=== PATIENT | female | born 1965 | race American Indian/Alaskan Native ===

== ENCOUNTER 2021-03-01 08:00 | Outpatient (CLI) | payer OTHER | END 2021-03-01 08:30 | disposition home or self-care (01) | LOC: PPH VACUNA 08:00 | DX: Z23 Encounter for immunization (principal) ==

== ENCOUNTER 2021-03-22 11:35 | Outpatient (CLI) | payer OTHER | END 2021-03-22 11:40 | disposition home or self-care (01) | LOC: PPH VACUNA 11:35 | PROVIDERS: ATTEND Emergency Medicine Pediatric Emergency Medicine | DX: Z23 Encounter for immunization (principal) ==

== ENCOUNTER 2021-09-08 21:18 | Emergency (ER) | payer OTHER ==
[~2021-09-08] VITALS: Ht 165.1 cm; Wt 73.5 kg
== END 2021-09-08 23:22 | disposition home or self-care (01) ==
LOC: ER 21:18
DX: N95.1 Menopausal and female climacteric states (principal); Z88.6 Allergy status to analgesic agent